=== PATIENT | female | born 2000 | race Hispanic/Latino ===

== ENCOUNTER 2022-06-09 14:15 | Emergency (ER) | payer OTHER ==
[~2022-06-09] VITALS: Ht 152.4 cm; Wt 48.1 kg
[2022-06-09] MEDS ORDERED: IBUPROFEN 600 MG TAB PO STA (14:44)
[2022-06-09] MEDS ORDERED: ACETAMINOPHEN 325 MG TAB PO STA (14:44)
[2022-06-09 15:30] LABS: INFLUENZAE A&B ANTIGEN (RAPID) NEGATIVE (NEGATIVE); STREPTOCOCCUS GRP A ANTIGEN NEGATIVE (NEGATIVE)
[2022-06-09] MEDS ORDERED: AZITHROMYCIN250 MG PO (16:37)
[2022-06-09 17:47] VITALS: BP 111/67
== END 2022-06-09 16:40 | disposition home or self-care (01) ==
LOC: ER 14:49
DX: R50.9 Fever, unspecified (principal); J02.9 Acute pharyngitis, unspecified; R09.89 Other specified symptoms and signs involving the circulatory and respiratory systems; Z20.822 Contact with and (suspected) exposure to COVID-19
CPT/HCPCS: 83518; 87070; 87400; 99283; U0002

== ENCOUNTER 2022-06-17 00:10 | Emergency (ER) | payer OTHER ==
[~2022-06-17] VITALS: Ht 152.4 cm; Wt 48.1 kg
[~2022-06-17 00:10] MED LIST: AZITHROMYCIN250 MG PO
[2022-06-17 01:14] LABS: INFLUENZAE A&B ANTIGEN (RAPID) NEGATIVE (NEGATIVE); RESPIRATORY SYNC. VIRUS NEGATIVE (NEGATIVE)
[2022-06-17] MEDS ORDERED: PROVENTIL HFA6.7 GM INH (01:56)
[2022-06-17] MEDS ORDERED: ALBUTEROL SULFATE HFA 8GM INHALATION AEROSOL INH PRN (02:00)
[2022-06-17] MEDS ORDERED: ALBUTEROL SULFATE HFA 8GM INHALATION AEROSOL INH ONE (02:13)
== END 2022-06-17 02:08 | disposition home or self-care (01) ==
LOC: ER 00:21
DX: R05.9 Cough, unspecified (principal); J40 Bronchitis, not specified as acute or chronic; Z33.1 Pregnant state, incidental; Z20.822 Contact with and (suspected) exposure to COVID-19
CPT/HCPCS: 71045; 87400; 87420; 99283; U0002